=== PATIENT | female | born 2000 | race Two or more races ===

== ENCOUNTER 2024-01-03 08:04 | Outpatient (RCR) | payer MEDICAID, SELFPAY ==
--- NOTE | 2024-01-01 08:51 | XR_ITS ---
Examination: Biophysical profile, ultrasound Date and time of exam: January 01, 2024 0922 hours INDICATIONS: Size dates discrepancy Technique: Multiple transabdominal sonographic images of the pelvis abdomen obtained. Attention is directed to the breathing movement, gross body movement, amniotic fluid volume and tone. Findings: Amniotic fluid index 14.1 cm Total biophysical profile is 8 of 8. breathing movement is 2. Gross body movement is 2. tone is 2. Qualitative amniotic fluid volume is 2 Impression: Biophysical profile is 8 of 8.
[2024-01-01 09:46] VITALS: BP 120/68; PULSE 85; RESP 16; TEMP 36.8
--- NOTE | 2024-01-03 08:16 | XR_ITS ---
Examination: Biophysical profile, ultrasound Date and time of exam: January 03, 2024 0832 hours INDICATIONS: Size dates discrepancy diagnosis Technique: Multiple transabdominal sonographic images of the pelvis abdomen obtained. Attention is directed to the breathing movement, gross body movement, amniotic fluid volume and tone. Findings: Amniotic fluid index 15.3 cm Total biophysical profile is 8 of 8. breathing movement is 2. Gross body movement is 2. tone is 2. Qualitative amniotic fluid volume is 2 Impression: Biophysical profile is 8 of 8.
--- NOTE | 2024-01-03 08:57 | XR_ITS ---
Examination: Complete OB ultrasound greater than 14 weeks Date and time of exam: January 03, 2024 0902 hours INDICATIONS: Diagnosis intrauterine growth rate correlation Findings: Viable intrauterine single fetus with single amniotic sac presentation cephalic spine maternal left Cardiac motion 138 BPM Placenta anterior grade 2 Umbilical cord insertion seen Amniotic fluid index 7.8 cm Cervix 2.9 cm Right ovary obscured by bowel gas Left ovary 3.8 x 2.4 x 3.2 cm arterial flow. Composite estimated gestational age based on BPD, head circumference, abdominal circumference, femur length is 35 weeks 1 day Estimated weight 2808 g. Survey of intracranial anatomy, spinal anatomy, abdominal anatomy, four-chamber heart performed with no abnormalities identified. Impression: Viable intrauterine gestation cephalic presentation.
[2024-01-03 09:42] VITALS: BP 125/80; PULSE 79; RESP 16; TEMP 36.7
== END 2024-01-03 23:59 | disposition home or self-care (01) ==
LOC: S4S1 08:04
PROVIDERS: Referring Provider Advanced Practice Midwife; Visit Provider Advanced Practice Midwife
DX: O26.843 Uterine size-date discrepancy, third trimester (principal); O09.93 Supervision of high risk pregnancy, unspecified, third trimester; Z3A.38 38 weeks gestation of pregnancy
CPT/HCPCS: 59025; 76805; 76819

== ENCOUNTER 2024-01-06 13:57 | Inpatient (IN) | payer MEDICAID, SELFPAY ==
[2024-01-06] VITALS (10 sets, daily range): BP systolic 122–142; BP diastolic 74–84; PULSE 76–94; RESP 17–19; TEMP 36.7–36.9; BMI 41.7
[2024-01-06 14:39] LABS: Basophils % (Auto) 0 % (0-2.5); Eosinophils # (Auto) 0.1 Thou/mm3 (0.0-0.5); Eosinophils % (Auto) 1 % (0-10); Hematocrit 32.8 % (36.0-46.0); Hemoglobin 11.4 g/dL (12.0-16.0); Immature Granulocytes % (Auto) 2 % (0-0); Immature Granulocytes Auto 0.13 Thou/mm3 (0.00-0.00); Lymphocytes # (Auto) 1.8 Thou/mm3 (1.0-4.8); Lymphocytes % (Auto) 21 % (10-50); Mean Corpuscular HGB Conc 34.8 g/dl (31.0-37.0); Mean Corpuscular Hemoglobin 29.8 pg (25.0-35.0); Mean Corpuscular Volume 86 fL (80-100); Monocytes # (Auto) 0.7 Thou/mm3 (0.0-0.8); Monocytes % (Auto) 8 % (0-12); Neutrophils # (Auto) 5.9 Thou/mm3 (1.8-7.7); Neutrophils % (Auto) 69 % (37-80); Nucleated Red Blood Cell % 0 /100 WBC (0); Platelet Count 269 Thou/mm3 (140-440); Red Blood Count 3.83 Miln/mm3 (4.00-5.20); White Blood Count 8.6 Thou/mm3 (3.6-11.0)
[2024-01-06 14:44] LABS: Amphetamine/Metham Scrn,Ur OB Negative (Negative); Benzoylecgonine Screen, Ur OB Negative (Negative); Opiate Screen,Urine OB Negative (Negative); THC Screen,Urine OB Negative (Negative)
[2024-01-06] MEDS: MISOPROSTOL 50 mCg TABLET PO ×2 (15:02→19:02)
[2024-01-06 15:20] LABS: Syphilis Nonreactive (Nonreactive)
[2024-01-06] MEDS: Ampicillin Inj 2,000 MG in SODIUM CHLORIDE 0.9% (P) 100 ML 200 MG IV (20:05)
--- NOTE | 2024-01-06 21:43 | PD.LDHP ---
Documentation for date of: 01/06/24 OB Labor/Induct. HPI History of Present Illness Chief complaint: induction : 1 Para: 0 Term pregnancies: 0 pregnancies: 0 Living children: 0 History of Abortions: Spontaneous and Elective: 0 History of Vaginal deliveries: 0 History of sections: No History of : No Date of last menstrual period: 04/07/23 KENZIE: 01/12/24 Gestational Age (weeks): 39 Gestational Age (days): 1 Gestational age based on last menstrual period: 39 Indication for induction: other (small for date, small vsd) History of present illness: 23-year-old 1 para 0 admit to labor and delivery for induction of labor. Patient been followed at [id number] care. First visit was at about 8 weeks. She had for dates and her first ultrasound in June 10 put her due 01/12/2024. Patient then had 13-week ultrasound in July that also confirm dates and a 20-week ultrasound normal anatomy and also confirmed dates and the baby had been growing at the 13th percentile. Denies social habits. Denies surgery. Denies chronic illness. Patient is O+, antibody screen negative, RPR nonreactive, rubella immune, hepatitis B negative, hep C negative, HIV negative, GC and Chlamydia were negative. She had a normal 1 hour. And her GBS is positive. History of Present Dating criteria: LMP confirmed by 1st trimester US Adequate Care: No Ultrasounds: normal 1st trimester US and normal mid trimester US Obstetrical complications: growth restriction Medical complications: none Review of Systems Review of Systems Systems Reviewed: All systems reviewed, normal except as documented Past Medical History Surgical History SURGICAL: Negative Section Meds Home Medications and Allergies Allergies Allergy/AdvReac Type Severity Reaction Status Date / Time No Known Allergies Allergy Verified 09/02/18 10:07 OB Exam Physical Exam Vital signs: Temp Pulse Resp BP 98.3 F 90 17 130/74 01/06/24 21:20 01/06/24 21:21 01/06/24 21:20 01/06/24 21:21 Narrative: Normal heart rate and rhythm. Lungs clear no wheezes. Gravid abdomen. Gynecoid pelvis. Estimated weight 7 pounds. heart rate category 1 with accelerations and moderate variability. Occasional contraction. Cervix on admission was 60%, 3, -1. Vertex. Bag water intact. Detailed Labor and Delivery Exam Dilation (cm): 3 Effacement (%): 60 Cervix position: mid station: -2 Consistency: soft Presentation: Vertex Cervical ripeness score: 6 Membranes: intact Baseline heart rate: 135 monitor accelerations: 15x15 monitor decelerations: None group home variability: Moderate (11-25) Contraction frequency (min): irreg Contraction duration (sec): mild Tachysystole: No Contraction intensity: Mild OB Results Labs 01/06/24 14:10 Labs: Short CBC 01/06/24 Range/Units 14:10 WBC 8.6 (3.6-11.0) Thou/mm3 Hgb 11.4 L (12.0-16.0) g/dL Hct 32.8 L (36.0-46.0) % Plt Count 269 (140-440) Thou/mm3 Impressions Impression: induction of labor OB Assessment & Plan Assessment and Plan (1) Normal labor and delivery: Status: Acute Additional Plan Induction method: per misoprostol protocol Plan: induction, anticipate NVD, GBS prophylaxis tx and consult MD barker
[2024-01-07] VITALS (138 sets, daily range): BP systolic 100–145; BP diastolic 55–85; PULSE 73–138; RESP 18–19; TEMP 36.9–37.5; O2SAT 93–100
[2024-01-07] MEDS: Ampicillin Inj 1,000 MG in SODIUM CHLORIDE 0.9% (P) 50 ML 50 MG IV ×6 (00:08→21:58)
[2024-01-07] MEDS: MISOPROSTOL 50 mCg TABLET PO ×2 (00:11→04:13)
[2024-01-07] MEDS: OXYTOCIN in NS 30 units 30 UNIT/500 ML BAG IV (09:13)
[2024-01-07] MEDS: SODIUM CHLORIDE 0.9% 1000 ML 1,000 ML 100 ML IV (10:55)
--- NOTE | 2024-01-07 12:48 | PD.LDPN ---
Documentation for date of: 01/07/24 OB Labor Progress Note Pain Control Pain control: tolerating well Pelvic Exam Dilation (cm): 6-7 Effacement (%): 80 station: -1 Amniotic membrane status: Ruptured (clear) Contractions Monitor mode: Internal (IUPC and ext cardio) Contraction frequency: irreg Contraction duration: 40 Contraction phase: Resting Contraction intensity: Moderate Status status: Category l Assessment and Plan Pitocin rate (mU/min): 3 Assessment: active labor Plan OB labor note: continuous present management CNM Management MD Consulted (describe details below): Yes
[2024-01-07] MEDS: MINERAL OIL 30 ML UDC TOP (14:45)
[2024-01-07] MEDS: OXYTOCIN in NS 20 units 20 UNIT/1,000 ML BAG 125 UNIT IV (14:53)
[2024-01-07] MEDS: MISOPROSTOL 200 mCg TABLET 800 MCG PR (14:55)
[2024-01-07] MEDS: OXYTOCIN INJ 10 UNIT/ML VIAL IM (14:58)
[2024-01-07] MEDS: LIDOCAINE HCL 1% 20 ML VIAL INFL (15:00)
[2024-01-07] MEDS: LIDOCAINE HCL 1% 20 ML VIAL (15:10)
[2024-01-07] MEDS: METHYLERGONOVINE INJ 0.2 MG/ML VIAL IM (15:10)
[2024-01-07] MEDS: IBUPROFEN TAB 400 MG TABLET 800 MG PO (15:54)
--- NOTE | 2024-01-07 15:54 | PD.LDDELS ---
Data (Hussein) Data Hx Section: No Para: 0 Delivery Data (Hussein) Labor Data Stimulated/Augmented: Yes Induction: Yes Method: Cytotec (pitocin to follow) ROM Date: 01/07/24 ROM Time: 12:35 Rupture Type: AROM Amniotic Fluid: Clear Delivery Data EDC: 01/12/24 EDC calculated by:: LMP/early US confirmation Labor Onset Stage 1 Date: 01/06/24 Labor Onset Stage 1 Time: 14:42 Labor Onset Stage 2 Date: 01/07/24 Labor Onset Stage 2 Time: 14:11 Delivery Date: 01/07/24 Delivery Time: 14:51 Gestational age (weeks): 39 Gestational age (days): 1 Placenta Delivery Date: 01/07/24 Placenta Delivery Time: 14:55 Delivered by: Lindy Galvez Delivery nurse: Orin Archer Other staff at delivery: Nursery Nurse Other staff at delivery: 2nd Nurse Other staff at delivery: 2nd Nurse Other staff at delivery: Deysi Man Other staff at delivery: Tabitha Gaxiola Other staff at delivery: Aretha Hardwick Delivery Method Delivery: Vaginal Delivery Type: Spontaneous Presentation: Vertex Position: OA Anesthesia Type Primary Anesthesia: None Delivery Room Medications Intrapartum Medications: Antibiotics and Tocolytics Other Intrapartum Medications: Yes Post Delivery Medications: Antibiotics, Tocolytics and Cytotec Placenta Placenta Delivery: Spontaneous Placenta Cultures Obtained: No Placenta Sent for Examination: No Cord Sample: Cord Blood Obtained Episiotomy Episiotomy: None Lacerations #1: Perineal: 2nd degree Perineal repair Sutures used for repair: 3.0 Vicryl (2.0) EBL Estimated blood loss (ml): 450 Umbilical Cord Umbilical Vessels: 3 Nuchal Cord: None Body Cord: None [facility] [place] Data (Hussein) Data Gender: Female Weight Grams: 3050 1 Minute Total: 9 5 Minute Total: 9
[2024-01-07] MEDS: TRANEXAMIC ACID 1,000 MG IVPB 1,000 MG/100 ML BAG 200 MG IV ×2 (15:56→17:52)
[2024-01-07] MEDS: metroNIDAZOLE/NS 500 MG IVPB 500 MG/100 ML BAG 100 MG IV (18:26)
[2024-01-07] MEDS: BENZO/LANO/ALOE (Dermoplast) 60 GM CAN 1 SPRAY TOP (20:34)
[2024-01-07] MEDS: DOCUSATE SOD 100 MG CAPSULE PO (20:34)
[2024-01-07 23:43] LABS: Basophils % (Auto) 0 % (0-2.5); Eosinophils % (Auto) 0 % (0-10); Hematocrit 26.9 % (36.0-46.0); Hemoglobin 9.3 g/dL (12.0-16.0); Immature Granulocytes % (Auto) 1 % (0-0); Immature Granulocytes Auto 0.09 Thou/mm3 (0.00-0.00); Lymphocytes # (Auto) 1.7 Thou/mm3 (1.0-4.8); Lymphocytes % (Auto) 12 % (10-50); Mean Corpuscular HGB Conc 34.6 g/dl (31.0-37.0); Mean Corpuscular Hemoglobin 29.8 pg (25.0-35.0); Mean Corpuscular Volume 86 fL (80-100); Monocytes # (Auto) 1.1 Thou/mm3 (0.0-0.8); Monocytes % (Auto) 7 % (0-12); Neutrophils # (Auto) 11.9 Thou/mm3 (1.8-7.7); Neutrophils % (Auto) 80 % (37-80); Nucleated Red Blood Cell % 0 /100 WBC (0); Platelet Count 222 Thou/mm3 (140-440); RDW Standard Deviation 40.4 fL (36.4-46.3); Red Blood Count 3.12 Miln/mm3 (4.00-5.20); White Blood Count 14.8 Thou/mm3 (3.6-11.0)
[2024-01-08 00:19] VITALS: BP 96/62; PULSE 101; RESP 15; TEMP 37; O2SAT 98
[2024-01-08] MEDS: Ampicillin Inj 1,000 MG in SODIUM CHLORIDE 0.9% (P) 50 ML 50 MG IV ×2 (02:17→05:47)
[2024-01-08 03:06] VITALS: BP 99/67; PULSE 99; RESP 26; TEMP 36.9; O2SAT 98
[2024-01-08 04:31] VITALS: BP 110/72; PULSE 91; RESP 20; TEMP 37; O2SAT 99
[2024-01-08 08:00] VITALS: BP 114/75; PULSE 94; RESP 18; TEMP 36.8; O2SAT 97
--- NOTE | 2024-01-08 08:00 | PD.LDPPPRG ---
Subjective Subjective Interval history: No complaints of pain. No dizziness. Patient is breast-feeding with help and bonding with her baby. Exam Vital Signs Temp Pulse Resp BP Pulse Ox O2 Del Method 98.6 F 91 20 110/72 99 Room Air 01/08/24 04:31 01/08/24 04:31 01/08/24 04:31 01/08/24 04:31 01/08/24 04:31 01/08/24 04:31 Narrative Exam Vital signs are stable afebrile. Breasts are soft. Fundus firm below the umbilicus. Perineum is well-approximated. Minimal swelling. Small lochia. Uterus well involuted. Negative Homans' sign. Objective Labs 01/07/24 23:20 Labs: Laboratory Results - last 24 hr 01/07/24 23:20 WBC 14.8 H D RBC 3.12 L Hgb 9.3 L D Hct 26.9 L MCV 86 MCH 29.8 MCHC 34.6 RDW Std Deviation 40.4 Plt Count 222 D Neut % (Auto) 80 Lymph % (Auto) 12 [place] % (Auto) 7 Eos % (Auto) 0 Baso % (Auto) 0 Neut # (Auto) 11.9 H Lymph # (Auto) 1.7 [place] # (Auto) 1.1 H Eos # (Auto) 0.0 Baso # (Auto) 0.0 Immature Gran # (Auto) 0.09 H Absolute Nucleated RBC 0.00 Immature Gran % 1 H Nucleated RBC % 0 Assessment & Plan Problem List (1) Normal labor and delivery: Status: Acute Assessment Comment Assessment comment: 24 hr pp Plan Comment Plan Comment: Discharge home with baby. Continue vitamins and iron. Tylenol ibuprofen for pain. Discussed danger signs and symptoms. Discussed ER precautions and parameters. Discussed signs and symptoms of infection. Discussed laceration care and comfort measures return in 2 weeks visit Time Spent With Patient Time: Total time spent is greater than 50% in coordination of care (as documented) at patient's floor/unit and/or counseling patient:
--- NOTE | 2024-01-08 08:02 | PD.LDDS ---
DS: Providers Provider Date of admission: 01/06/24 13:57 Primary care physician: Physician No Primary/Family Admitting Provider: Lindy Galvez CNM Attending Provider on Admission: Brady Jackson MD Consults: 01/07/24 16:52 Referral Routine Comment: Attending Provider on DC: Lindy Galvez CNM Discharging Provider: Lindy Galvez CNM DS: Diagnosis Problem List Completed Was Problem List Reviewed/Reconciled?: Yes Summary/Hosp Course Brief History: 23-year-old 1 para 0 admit to labor and delivery for induction of labor. Patient been followed at [facility] care. First visit was at about 8 weeks. She had for dates and her first ultrasound in June 10 put her due 01/12/2024. Patient then had 13-week ultrasound in July that also confirm dates and a 20-week ultrasound normal anatomy and also confirmed dates and the baby had been growing at the 13th percentile. Denies social habits. Denies surgery. Denies chronic illness. Patient is O+, antibody screen negative, RPR nonreactive, rubella immune, hepatitis B negative, hep C negative, HIV negative, GC and Chlamydia were negative. She had a normal 1 hour. And her GBS is positive. Peripartum Data Delivery Method: Normal Vaginal Delivery Episiotomy Description: None Laceration Description: yes (2nd perineal and vaginal) Time Spent with Patient Time attestation: Total time spent providing and/or coordinating discharge services: Exam Vital Signs Temp Pulse Resp BP Pulse Ox O2 Del Method 98.6 F 91 20 110/72 99 Room Air 01/08/24 04:31 01/08/24 04:31 01/08/24 04:31 01/08/24 04:31 01/08/24 04:31 01/08/24 04:31 Discharge Plan Plan Patient Disposition: HOME (Self Care) Prescriptions/Referrals Prescriptions/Med Rec: No Action No Known Home Medications Referrals: No Primary/Family,Physician [Primary Care Provider] - Patient/Caregiver Discharge Instructions Print Language: Kazakh Activity Restrictions/Additional Instructions: Discharge home with baby. Continue vitamins and iron. Tylenol or ibuprofen for pain. Discussed danger signs and symptoms. Discussed ER precautions and parameters. Discussed signs and symptoms of infection. I discussed wound care and comfort measures for her perineal laceration. Increase fluids and rest. Return in 2 weeks visit Stand Alone Forms: Bibi Award Info., Patient Portal Info Letter Discharge Order Discharge Orders: Discharge (Routine); Ordered 01/08/24 Ordered By: Lindy Galvez Planned Discharge Date 01/08/24
[2024-01-08] MEDS: DOCUSATE SOD 100 MG CAPSULE PO (08:10)
--- NOTE | 2024-01-08 10:01 | PC.SS ---
EMERGENCY MEDICAL SERVICES COORDINATOR conducted bedside contact with the patient to address nursing referral indicating patient possessed history of THC use. Toxicology report negative on current admission. EMERGENCY MEDICAL SERVICES COORDINATOR introduce self, role and basis of discussion. Present with patient was Jamie BARRIOS. Patient gave permission for FOB to be present during discussion. Patient confirmed past use of THC approximately 3 years ago. Patient stated use was recreational, no plans to resume use. [place], [place] is the patient?s first baby. OB services provided by Lindy Galvez, patient confirmed consistency with OB appointments. Patient resides with Jamie BARRIOS. Patient is employed as an hospital aide. Patient is aligned with WIC and SNAP. Patient is no aligned with TANF. Patient denies history of alcohol/drug abuse. Patient denies CWS intervention. Patient denies episodes of domestic violence. Patient denies possessing a history of mental health, reports no current possession of depression or anxiety. Patient plans on combo feeding the . Patient has access to appropriate supplies and equipment; to include a car seat. FOB will provide transportation upon discharge. Patient describes possessing support system consisting of parents and extended family. EMERGENCY MEDICAL SERVICES COORDINATOR provided the patient with community resources to include Parenting Network and Warm Line. No further intervention required at this time, school social worker will be available to address any further concerns. EMERGENCY MEDICAL SERVICES COORDINATOR updated bedside nurse.
[2024-01-08 11:30] VITALS: BP 106/69; PULSE 93; RESP 17; TEMP 36.9; O2SAT 99
== END 2024-01-08 15:25 | disposition home or self-care (01) | DRG 560 ==
LOC: S4SX 14:13 → S4NX 01-07 18:23
PROVIDERS: Admitting Provider Advanced Practice Midwife; Visit Provider Obstetrics & Gynecology
DX: O36.5930 Maternal care for other known or suspected poor fetal growth, third trimester, not applicable or unspecified (principal); Z37.0 Single live birth; Z3A.39 39 weeks gestation of pregnancy; O70.1 Second degree perineal laceration during delivery
CPT/HCPCS: 36415; 59409; 80307; 85025; 86780; 86850; 86900; 86901; 94762; J0290; J2210; J2590; J2795; J3490; J7030; J7050; S0191; A9270; J1836